=== PATIENT | male | born 1955 | race Caucasian/White ===

== ENCOUNTER 2021-02-06 08:51 | Outpatient (CLI) | payer BC, SELFPAY | END 2021-02-06 08:52 | disposition home or self-care (01) | PROVIDERS: PCP Nurse Practitioner Family; Visit Provider Nurse Practitioner Family | DX: H90.3 Sensorineural hearing loss, bilateral (principal) | CPT/HCPCS: 92557; 92567 ==

== ENCOUNTER 2021-02-13 09:28 | Outpatient (CLI) | payer BC, SELFPAY ==
--- NOTE | ~2021-02-13 | XR_ITS ---
EXAMINATION: XR abdomen/kub 1V EXAM DATE: 02/13/2021 09:44 INDICATION: Kidney stone. TECHNIQUE: Frontal projection of the upper abdomen, frontal projection lower abdomen/pelvis for inter pretation. There is no prior study for comparison. FINDINGS: There is somewhat amorphous calcific density projecting over expected location of left ure ter proximally, possible ureteral stone or stones. There is more dense calcification projecting over lower pole of left kidney, probable inferior calyceal stone. These findings have been indicated for c orrelation with patient's prior cross-sectional imaging. There is nonobstructive bowel gas pattern. L jasmin bases are clear. Mild bony degenerative changes. IMPRESSION: 1. Left nephrolithiasis. 2. Another calcific density could be left proximal ureteral stone or stones. Reviewed, dictated and finalized at location A.
--- NOTE | ~2021-02-13 | US_ITS ---
EXAMINATION: US renal BI DATE: 02/13/2021 10:28 INDICATION: Calculus of the kidney TECHNIQUE: Multiple grayscale and Doppler ultrasound images of the kidneys were obtained. COMPARISON: None. FINDINGS: The right kidney measures 10.4 x 5.5 x 5.6 cm. There is an 8 mm hyperechoic focus right kid kassi upper pole which may reflect a nonobstructing stone. There is 1.9 cm cyst with thin internal sept ation the upper pole of the right. The left kidney measures 11.4 x 7.0 x 6.3 cm. Cysts of the left ki dney measure up to 8.4 cm. Suspected nephrolithiasis on today's KUB is not well demonstrated. The kid neys demonstrate normal parenchymal echogenicity. There is no hydronephrosis. The bladder is normal. IMPRESSION: 1. Nonobstructing right kidney stone. Reviewed, dictated and finalized at location B.
== END 2021-02-13 09:29 | disposition home or self-care (01) ==
LOC: ANHIMG 09:33
PROVIDERS: PCP Nurse Practitioner Family; Visit Provider Urology
DX: N20.0 Calculus of kidney (principal)
CPT/HCPCS: 74018; 76775

== ENCOUNTER 2021-02-20 06:41 | Outpatient (CLI) | payer BC, SELFPAY ==
--- NOTE | ~2021-02-20 | MR_ITS ---
EXAMINATION: MR IAC wo/w con DATE: 02/20/2021 08:16 INDICATION: Asymmetrical neurosensory hearing loss. Tinnitus. TECHNIQUE: Magnetic resonance imaging (MRI) of the brain, brainstem, and internal auditory canals was performed without and with 15 mL MultiHance intravenous contrast. Sequences included sagittal and ax ial T1-weighted FSE, axial diffusion-weighted FS EPI, axial T2*-weighted GRE, axial T2-weighted FLAIR Propeller, axial T2-weighted Propeller, small vaadl-dn-ygwn coronal FIESTA, small wqhxs-hx-fahe manny nal T1-weighted FSE, and small iinep-jh-zxim axial T1-weighted SPGR. Postcontrast sequences included axial T1-weighted FSE, small hqrfv-jt-wkdw coronal T1-weighted FSE, and small odhfq-ad-pxau axial T1- weighted SPGR. Apparent diffusion coefficient (ADC) maps were created. COMPARISON: None. FINDINGS: There is no intracranial hemorrhage, acute infarction, or abnormal intracranial mass lesion . The ventricles are normal in size. There is a mucous retention cyst in left maxillary sinus. The in ternal auditory canals and inner and middle ears are normal. The mastoid air cells are normal. The or bits are normal. IMPRESSION: 1. Normal brain. Reviewed, dictated and finalized at location A. 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 Normal brain.
[2021-02-20 07:21] LABS: Estimated Glomerular Filt Rate > 60
== END 2021-02-20 06:42 | disposition home or self-care (01) ==
LOC: ANHIMG 06:47
PROVIDERS: PCP Nurse Practitioner Family; Visit Provider Nurse Practitioner Family
DX: H90.5 Unspecified sensorineural hearing loss (principal)
CPT/HCPCS: 70553; A9577

== ENCOUNTER 2021-05-03 13:30 | Outpatient (RCR) | payer BC, SELFPAY | END 2021-06-14 23:59 | disposition home or self-care (01) | LOC: ANHAUDASC 13:30 | PROVIDERS: PCP Nurse Practitioner Family; Visit Provider Nurse Practitioner Family | DX: Z46.1 Encounter for fitting and adjustment of hearing aid (principal) | CPT/HCPCS: 99199; V5160; V5261 ==

== ENCOUNTER 2021-09-17 10:17 | Emergency (ER) | payer MEDICARE, MEDICAID, SELFPAY ==
[2021-09-17 10:28] VITALS: BP 114/85; PULSE 80; RESP 12; TEMP 36; O2SAT 100
--- NOTE | 2021-09-17 10:58 | ED.GENADULT ---
HPI - General Adult General Chief complaint: Upper Respiratory Infection Stated complaint: sore throat Source: patient Mode of arrival: ambulatory Limitations: no limitations History of Present Illness HPI narrative: Patient presents for evaluation of sore throat for the last week. He states that symptoms are progressively worsening. He now reports pain in bilateral ears when he swallows. He has also developed a productive cough of clear sputum. No fever, chills, nausea, vomiting, diarrhea, body aches or SOB. He states several family members have similar symptoms. His was evaluated and told her symptoms were allergy-related. He has not been taking any medications to assist with his symptoms. He had COVID back in 2019. He has not received COVID vaccination. He states he had similar symptoms in the past with bronchitis. He states he previously had recurrent bronchitis when he smoked, which he no longer does. Related Data Home Medications Medication Instructions Recorded Confirmed montelukast 10 mg tablet tablet 09/17/21 omeprazole 40 mg capsule,delayed cap 09/17/21 release rosuvastatin 10 mg tablet tablet 09/17/21 sumatriptan succinate 4 mg/0.5 mL ea subcut 09/17/21 subcutaneous cartridge (refill) verapamil 80 mg tablet tablet 09/17/21 Allergies Allergy/AdvReac Type Severity Reaction Status Date / Time No Known Allergies Allergy Verified 09/17/21 10:29 Review of Systems Review of Systems: CONSTITUTIONAL: Denies fever, chills, or sweats. EYES: Denies visual changes, redness, or discharge. ENT: Reports bilateral ear pain and sore throat. Denies rhinorrhea, congestion CARDIOVASCULAR: Denies chest pain, palpitations, or edema. RESPIRATORY:Reports cough. Denies dyspnea. GASTROINTESTINAL: Denies abdominal pain, nausea, vomiting, or diarrhea. GENITOURINARY: Denies dysuria or hematuria. SKIN: Denies rash or itching. MUSCULOSKELETAL: Denies back pain, joint pain, or myalgia. NEUROLOGIC: Denies headache, numbness, dizziness, or weakness. PSYCHIATRIC: Denies anxiety or depression. [facility] Past Medical History Medical History (Updated 09/17/21 @ 11:19 by Karan Hilliard, CED, BRANDON) No pertinent past medical history Surgical History Surgical History No pertinent past surgical history Family History Family History Mother Family history non-contributory Social History Social History Smoking status: Former smoker Substance use: never Living arrangements: with family Gender identity (if verbalized by the patient): Male Sexual Orientation (if Verbalized by the Patient): Straight or Heterosexual Spiritual care concerns: No Exam Narrative: GENERAL: Well-appearing, well-nourished, and in no acute distress. HEAD: Normocephalic, atraumatic. EYES: PERRLA and EOMI. ENT: Nares clear, no rhinorrhea or epistaxis. Mucous membranes moist. Posterior pharyngeal erythema without exudate. Uvula midline. Bilateral TMs pearly andersen nonbulging NECK: Supple. No adenopathy or masses. No carotid bruits or JVD CHEST: Clear to auscultation. No respiratory distress. No wheezes rales or rhonchi HEART: Regular rate and rhythm. No murmur heard. Normal peripheral pulses. ABDOMEN: Soft, nontender, nondistended, normal active bowel sounds. EXTREMITIES: Normal range of motion. No edema. SKIN: Warm, dry, no rash. NEURO: No focal deficits. Alert and oriented x3. PSYCH: Normal mood and affect. Course Course Emergency Course: This is a 66-year-old male who presented with complaints of sore throat x1 week. Strep was negative, but he had improvement in the past with amoxicillin. Will dc with amoxicillin. Advised follow up outpatient for further evaluation and treatment and return for worsening symptoms. Pt in agreement with plan of
== END 2021-09-17 11:22 | disposition home or self-care (01) ==
PROVIDERS: Emergency Provider Nurse Practitioner; PCP Family Medicine
DX: J02.9 Acute pharyngitis, unspecified (principal); Z28.310 Unvaccinated for COVID-19
CPT/HCPCS: 87081; 87880; 99213; G0463

== ENCOUNTER 2021-10-23 10:01 | Outpatient (RCR) | payer MEDICARE, MEDICAID, SELFPAY | END 2022-01-21 23:59 | disposition home or self-care (01) | LOC: ANHAUDASC 10:01 | PROVIDERS: PCP Family Medicine; Visit Provider Family Medicine | DX: Z46.1 Encounter for fitting and adjustment of hearing aid (principal) | CPT/HCPCS: 99199 ==

== ENCOUNTER 2022-01-01 10:20 | Outpatient (CLI) | payer MEDICARE, MEDICAID, SELFPAY ==
--- NOTE | 2022-01-02 11:03 | WPDNEUROLOGY ---
Neurology EEG Report General Information Date of Study: 01/01/22 TEST EEG DIAGNOSIS amnesia CONDITION OF RECORDING drowsy and sleep EEG NUMBER [id number] CLINICAL HISTORY patient states that his tells him he is having trouble remembering things. He does notice it some but not as much as his . EEG DESCRIPTION Basic resting occipital frequency consists of low voltage 9 to 11 hertz per 2nd alpha during brief periods of wakefulness. Low-voltage beta activity seen diffusely during drowsiness. Bilateral symmetrical sleep activity seen during sleep. Hyperventilation not done. Photic stimulation produced poor drive. Non paroxysmal. Nonfocal. Non lateralizing. IMPRESSION No significant abnormalities noted
== END 2022-01-01 10:21 | disposition home or self-care (01) ==
LOC: ANHNEURO 10:23
PROVIDERS: PCP Family Medicine; Visit Provider Psychiatry & Neurology Neurology
DX: R41.3 Other amnesia (principal)
CPT/HCPCS: 95816

== ENCOUNTER 2022-01-05 08:00 | Outpatient (CLI) | payer MEDICARE, MEDICAID, SELFPAY ==
--- NOTE | ~2022-01-05 | US_ITS ---
EXAMINATION: US carotid duplex BI DATE: 01/05/2022 08:39 INDICATION: Transient cerebral ischemic attack TECHNIQUE: Grayscale, color Doppler, and pulsed Doppler images of the cervical carotid arteries were obtained. The degree of vessel stenosis is placed in one of the following categories: normal, <50%, 5 0-69%, >=70% but less than near-occlusion, near-occlusion, or total occlusion. Note that percent sten osis relative to normal distal artery lumen diameter is indirectly measured from velocity measurement s as described by Chele, et al. Radiology 2003; 229:340-346. Notes: Normal: Peak systolic velocity <125 centimeters/sec and no plaque <50%. Peak systolic velocity <125 ( EDV <40; ICA/CCA PSV ratio <2.0; used these factors only a tandem lesions or low cardiac output or co ntralateral disease) 50-69 %: PSV 125-230 (EDV 40-100; ratio 2-4) >= 70% but less than near occlusion: PSV greater than 230 (EDV > 100; ratio> 4.0) Near Occlusion: PSV that is variable; markedly narrowed lumen Occlusion: Absent flow on color/spectral Doppler and no lumen on andersen scale. COMPARISON: None. FINDINGS: RIGHT: The right common carotid artery (CCA) peak systolic velocity (PSV) is 91 cm/s. The right internal car otid artery (ICA) PSV is 73 cm/s. The right ICA end-diastolic velocity (EDV) is 23 cm/s. The right IC A/CCA PSV ratio is 0.8. The external carotid artery (ECA) PSV is 65 cm/s. There is antegrade flow in the right vertebral artery. LEFT: The left CCA PSV is 75 cm/s. The left ICA PSV is 68 cm/s. The left ICA EDV is 33 cm/s. The left ICA/C CA PSV ratio is 0.9. The ECA PSV is 51 cm/s. There is antegrade flow in the left vertebral artery. IMPRESSION: 1. Less than 50% stenosis in the right internal carotid artery by sonographic criteria. 2. Less than 50% stenosis in the left internal carotid artery by sonographic criteria. Reviewed, dictated and finalized at location A. IMPRESSION: 1. Less than 50% stenosis in the right internal carotid artery by sonographic amalia maher. 2. Less than 50% stenosis in the left internal carotid artery by sonographic aleksandr harris.
== END 2022-01-05 08:01 | disposition home or self-care (01) ==
PROVIDERS: PCP Family Medicine; Visit Provider Psychiatry & Neurology Neurology
DX: G45.9 Transient cerebral ischemic attack, unspecified (principal); I65.23 Occlusion and stenosis of bilateral carotid arteries
CPT/HCPCS: 93880

== ENCOUNTER 2022-10-19 13:26 | Outpatient (CLI) | payer MEDICARE, MEDICAID, SELFPAY | END 2022-10-19 13:27 | disposition home or self-care (01) | LOC: ANHAUDASC 13:27 | PROVIDERS: PCP Family Medicine; Visit Provider Family Medicine | DX: H90.3 Sensorineural hearing loss, bilateral (principal) | CPT/HCPCS: 92557; 92567 ==

== ENCOUNTER 2023-07-15 10:21 | Emergency (ER) | payer MEDICARE, SELFPAY ==
[2023-07-15 10:35] VITALS: BP 111/80; PULSE 72; RESP 18; TEMP 36.8; O2SAT 97
--- NOTE | 2023-07-15 10:42 | ED.URI ---
HPI - URI/Sore Throat General Chief Complaint: Upper Respiratory Infection Stated Complaint: Upper Respiratory Symptoms Time Seen by Provider: 07/15/23 10:42 Source: patient, RN notes reviewed and old records reviewed Mode of arrival: ambulatory Limitations: no limitations History of Present Illness HPI Narrative: 68-year-old male presents to the [facility] with complaints of upper respiratory symptoms that started about 1 week ago. Patient reports cough and shortness of breath. Patient does have a history of smoking, quit about 6 years ago. Patient denies any fevers. Patient denies any chest pain. Has taken Mucinex with no relief Treatments prior to arrival: cold medicine Related Data Home Medications Medication Instructions Recorded Confirmed montelukast 10 mg tablet 1 tablet PO DAILY 09/17/21 07/15/23 omeprazole 40 mg capsule,delayed 1 cap PO DAILY 09/17/21 07/15/23 release rosuvastatin 10 mg tablet 1 tablet PO DAILY 09/17/21 07/15/23 sumatriptan succinate 4 mg/0.5 mL 1 ea subcut PRN PRN Headache 09/17/21 07/15/23 subcutaneous cartridge (refill) verapamil 80 mg tablet 1 tablet PO DAILY 09/17/21 07/15/23 Allergies Allergy/AdvReac Type Severity Reaction Status Date / Time No Known Allergies Allergy Verified 07/15/23 11:37 Review of Systems Review of Systems: All systems reviewed & are unremarkable except as noted in HPI and below Constitutional: Constitutional: Reports no additional constitutional complaints Eyes: Eyes: Reports no additional eye complaints ENT: Reports system reviewed and no additional complaints, except as documented Cardiovascular: Cardiovascular: Reports no additional cardiovascular complaints, Denies chest pain and Denies dyspnea Respiratory: Respiratory: Reports as per HPI, Denies chest congestion, Reports cough and Reports dyspnea (Intermittent) Gastrointestinal: Gastrointestinal: Reports no additional gastrointestinal complaints, Denies abdominal pain, Denies nausea and Denies vomiting Musculoskeletal: Musculoskeletal: Reports no additional musculoskeletal complaints Integumentary/Breasts: Skin/Breast: Reports system reviewed and no additional complaints, except as docu Neurologic: Reports system reviewed and no additional complaints, except as documented Psychiatric: Psychiatric: Reports no additional psychiatric complaints Allergic/Immunologic: Allergic/Immunologic: Reports no additional allergic/immunologic complaints PMFSH Past Medical History Medical History No pertinent past medical history Surgical History Surgical History No pertinent past surgical history Family History Family History Mother Family history non-contributory Social History Social History Smoking status: Former smoker Substance use: never Living arrangements: with family Gender identity (if verbalized by the patient): Male Sexual Orientation (if Verbalized by the Patient): Straight or Heterosexual Spiritual care concerns: No Comments At the time of my signature, I reviewed and agree with the nursing past medical, surgical, social, and family history. There is no relevant family history pertinent to the patient complaint. Exam Const: General: cooperative, healthy appearing, comfortable, no acute distress, well developed, alert and well nourished Nutritional Appearance: well nourished Orientation/consciousness: patient oriented x3 Limitations: no limitations HENMT: Head: normal to inspection Ears: hearing grossly normal bilaterally, external ears normal, TM's normal bilaterally, EAC's normal, mastoids normal, no periauricular adenopathy and other (Wears hearing aids) Face/Nose/Sinus: Normal external nose present, Normal nares present, Normal nasal mucous memb
== END 2023-07-15 11:32 | disposition home or self-care (01) ==
PROVIDERS: Emergency Provider Nurse Practitioner
DX: J40 Bronchitis, not specified as acute or chronic (principal); Z87.891 Personal history of nicotine dependence
CPT/HCPCS: 99213; G0463

== ENCOUNTER 2023-09-16 09:35 | Outpatient (CLI) | payer MEDICARE, SELFPAY ==
[2023-09-16 12:51] LABS: Hematocrit 44.7 % (42.0-52.0); Hemoglobin 14.4 g/dL (14.0-18.0); Mean Corpuscular HGB Conc 32.2 g/dl (32-36); Mean Corpuscular Hemoglobin 30.7 pg (26-34); Mean Corpuscular Volume 95.3 fl (80-100); Mean Platelet Volume 11.5 fl (7.4-10.4); Platelet Count Result 173 k/mm3 (150-375); Red Blood Count 4.69 M/mm3 (4.6-6.20); Red Cell Distribution Width 13.8 % (11.5-14.5); White Blood Count 4.8 K/mm3 (4.5-10.0)
[2023-09-16 13:23] LABS: Alanine Aminotransferase 53 U/L (6-50); Albumin Level 4.6 g/dL (3.5-5.1); Alkaline Phosphatase 45 U/L (38-126); Anion Gap 7 mmol/L (4-12); Aspartate Amino Transferase 37 U/L (17-59); Bilirubin,Total 0.8 mg/dL (0.2-1.3); Blood Urea Nitrogen 21 mg/dL (9-20); Calcium 9.7 mg/dL (8.4-10.2); Carbon Dioxide 28 mmol/L (22-30); Chloride 104 mmol/L (98-107); Cholesterol 159 mg/dL (0-200); Estimated Glomerular Filt Rate 60; Glucose 95 mg/dL (65-110); HDL Direct 47 mg/dL; Sodium 139 mmol/L (137-145); Triglycerides 87 mg/dL (<150)
[2023-09-16 13:34] LABS: LDL Cholesterol Direct 88 mg/dL
[2023-09-16 17:27] LABS: Hemoglobin A1C 5.5 % (<5.7)
[2023-09-19 11:38] LABS: Vitamin D 1,25 (OH)2 Total 57 pg/mL (18-72); Vitamin D2 1,25 (OH)2 <8 pg/mL; Vitamin D3 1,25 (OH)2 57 pg/mL
== END 2023-09-16 09:36 | disposition home or self-care (01) ==
LOC: ANHGOSHLAB 09:36
PROVIDERS: PCP Family Medicine; Visit Provider Family Medicine
DX: E55.9 Vitamin D deficiency, unspecified (principal); E78.5 Hyperlipidemia, unspecified; I10 Essential (primary) hypertension; R73.03 Prediabetes; Z79.899 Other long term (current) drug therapy; Z12.11 Encounter for screening for malignant neoplasm of colon
CPT/HCPCS: 36415; 80053; 80061; 82652; 83036; 84443; 85027

== ENCOUNTER 2023-10-25 09:12 | Outpatient (CLI) | payer MEDICARE, SELFPAY ==
--- NOTE | ~2023-10-25 | MR_ITS ---
MRI of the brain Clinical History: Short-term memory issues Technique: Axial and sagittal T1-weighted images were acquired. These were followed by axial T2-weigh jim, diffusion weighted, gradient, and FLAIR images. Findings: No abnormal signal seen in the brain parenchyma. No acute infarct, intracranial hemorrhage, mass lesion. Ventricles and subarachnoid spaces are unremarkable. Orbits are unremarkable. Paranasal sinuses and m astoid air cells are clear. Major intracranial flow voids are intact. Sagittal midline structures are intact. IMPRESSION: Normal exam. Reviewed, dictated and finalized at location M. IMPRESSION: Normal exam.
== END 2023-10-25 09:13 ==
LOC: GOSHIMG 09:13
PROVIDERS: PCP Family Medicine; Visit Provider Student in an Organized Health Care Education/Training Program
DX: R41.3 Other amnesia (principal)
CPT/HCPCS: 70551

== ENCOUNTER 2023-12-10 09:37 | Outpatient (CLI) | payer MEDICARE, SELFPAY ==
[2023-12-11 20:24] LABS: Red Blood Cell Folate 470 ng/mL RBC (>280)
[2023-12-12 12:23] LABS: Homocysteine 8.2 umol/L (<11.4)
[2023-12-17 10:38] LABS: Methylmalonic Acid 175 nmol/L (69-390)
[2023-12-18 07:59] LABS: Reference Lab Test Name PTAU181 Plasma
[2023-12-18 08:02] LABS: Reference Lab Test Result 0.81
[2023-12-20 08:43] LABS: Reference Lab Test Name NfL Plasma
[2023-12-20 08:45] LABS: Reference Lab Test Result 2.21
[2023-12-23 08:08] LABS: Reference Lab Test Name APOE Isoform
[2023-12-23 08:11] LABS: Reference Lab Test Result E3/E4
[2023-12-23 08:23] LABS: Reference Lab Test Name Beta Amy 42/40
== END 2023-12-10 09:38 | disposition home or self-care (01) ==
LOC: ANHGOSHLAB 09:39
PROVIDERS: PCP Family Medicine; Visit Provider Psychiatry & Neurology Neurology
DX: R41.3 Other amnesia (principal); Z79.899 Other long term (current) drug therapy
CPT/HCPCS: 36415; 82607; 82747; 83090; 83921; 84443

== ENCOUNTER 2024-01-07 11:54 | Outpatient (CLI) | payer MEDICARE, SELFPAY ==
[2024-01-07 14:00] LABS: Prostate Specific Antigen < 0.1 ng/mL (< OR = 4.0)
== END 2024-01-07 11:55 | disposition home or self-care (01) ==
PROVIDERS: PCP Family Medicine; Visit Provider Nurse Practitioner
DX: Z12.5 Encounter for screening for malignant neoplasm of prostate (principal)
CPT/HCPCS: 36415; 84153; G0103

== ENCOUNTER 2024-01-23 07:11 | Outpatient (CLI) | payer MEDICARE, SELFPAY ==
[2024-01-23 07:51] LABS: Alanine Aminotransferase 39 U/L (6-50); Albumin Level 4.6 g/dL (3.5-5.1); Alkaline Phosphatase 43 U/L (38-126); Anion Gap 6 mmol/L (4-12); Aspartate Amino Transferase 29 U/L (17-59); Bilirubin,Total 0.8 mg/dL (0.2-1.3); Blood Urea Nitrogen 19 mg/dL (9-20); Calcium 9.4 mg/dL (8.4-10.2); Carbon Dioxide 29 mmol/L (22-30); Chloride 101 mmol/L (98-107); Cholesterol 196 mg/dL (0-200); Estimated Glomerular Filt Rate > 60; Glucose 102 mg/dL (65-110); HDL Direct 62 mg/dL; Potassium 3.9 mmol/L (3.4-5.0); Sodium 136 mmol/L (137-145); Triglycerides 103 mg/dL (<150)
[2024-01-23 08:02] LABS: LDL Cholesterol Direct 99 mg/dL
[2024-01-23 09:16] LABS: Hemoglobin A1C 5.7 % (<5.7)
== END 2024-01-23 07:12 | disposition home or self-care (01) ==
PROVIDERS: PCP Family Medicine; Visit Provider Nurse Practitioner
DX: E78.5 Hyperlipidemia, unspecified (principal); R73.03 Prediabetes
CPT/HCPCS: 36415; 80053; 80061; 83036

== ENCOUNTER 2024-07-22 07:44 | Outpatient (CLI) | payer MEDICARE, SELFPAY ==
--- OUTSIDE RECORDS SUMMARY | 2024-07-22 07:49 | XMS_ITS | Clinical Summary ---
Author Organization [facility] Address [address] [place] [address] Care Team Providers Care Deputy City Clerk Name Role Phone Provider, No Pcp Primary Care Provider Unavailab le Source Comments [facility],non-owned Affiliates and Associated Physician Practices is amultiple site organization consisting of ambulatory clinics and hospital sitesin [place], [place], [place] and [place]. This disclosure is being madepursuant to the Care Everywhere program and may not contain all information available regarding this patient. Last updated 18.[facility] Health Encounters Date Type Department Care Team Description 05/04/2024 Travel from Last 3 Months Social History Tobacco Use Types Packs/Day Years Used Date Smoking Tobacco: Never Assessed Sex and Gender Information Value Date Recorded Sex Assigned at Not on file Gender Identity Male 08/20/2023 9:50 AM CDT Sexual Orientation Not on file Plan of Treatment Health Maintenance Due Date Last Done Comments COLOGUARD (AGES 45-75) - COL ON CA SCREENING 1956 COLON MONITORING 1956 COLONOSCOPY - COLON CA SCREENING 1956 CT COLONOGRAPHY - COLON CA SCREENING 1956 Colorectal Cancer Screening 1956 FIT - COLON CA SCREENING 1956 FLEX SIG - COLON CA SCREENING 1956 LIPID TESTING 1956 HEPATITIS C SCREENING 06/24/1974 DTAP/TDAP/TD VACCINES (1 - Tdap) 06/29/1975 PNEUMOCOCCAL VACCINE 50+ (1 of 1 - PCV) 2006 ZOSTER VACCINE (1 of 2) 2006 COVID-19 VACCINE (2023-2 5 season) 2023 INFLUENZA VACCINE (#1) 2023 DEPRESSION SCREENING 04/15/2024 Respiratory Syncytial Virus (RSV) Vaccine Pt: or over 60 yrs (1 - 1-dose 75+ series) 06/29/2031 HEPATITIS B VACCINE Aged Out No longe r eligible based on patient's age to complete this topic HIB VACCINE Aged Out No longer eligi ble based on patient's age to complete this topic HPV VACCINE Aged Out No longer eligi ble based on patient's age to complete this topic MENINGOCOCCAL (Group B) VACC INE SHARED DECISION-MAKING Aged Out No longer eligibl e based on patient's age to complete this topic MENINGOCOCCAL GROUPS A/C/Y/W VACCINE Aged Out No longer eligible b ased on patient's age to complete this topic Medical Devices Implanted Type Area Vacuum Tank Tender Device Identifier Shelf Expiration Date Model / Serial / Lot Stent Implanted:Qty: 1 on 10/19/2009 Left: [employer] 08/13/2012 [id number] / / [id number] Advance Directives Documents on File Type Date Recorded 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
--- OUTSIDE RECORDS SUMMARY | 2024-07-22 07:49 | XMS_ITS | Clinical Summary ---
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 Gender Identity Not on file Sexual Orientation Not on file Plan of Treatment Upcoming Encounters Date Type Department Care Team (Late st Contact Info) Description 11/19/2024 11:00 AM CDT Office Visit [facility] - [address] [place] [phone] Jerad Padilla MD [address] [place] [id number] Health Maintenance Due Date Last Done Comments Colorectal Cancer Screening Colonoscopy (10 Years) 1956 Hepatitis C 1974 DTaP, Tdap and Td Vaccines ( 1 - Tdap) 06/29/1975 Zoster Vaccines (1 of 2) 2006 Annual Medicare Wellness Visit 2021 Pneumococcal Vaccine: 65+ Ye ars (1 of 1 - PCV) 2021 COVID-19 Vaccine ( - 2023-2 5 season) 2023 RSV Immunization or 60+ Years (1 - 1-dose 75+ series) 06/29/2031 Meningococcal B Vaccine Aged Out No l onger eligible based on patient's age to complete this topic Meningococcal Vaccine Aged Out No nader wanda eligible based on patient's age to complete this topic RSV Immunizations Under 20 Months Aged Out No longer eligible based on patient's age to complete this topic Insurance HUMAN Care Teams Touch Up Painter Relationship Specialty Start Date End Date Marleni Ibrahim NP [address] [place] [address] PCP - General [facility] SPORTS MEDICINE 05/26/24
[2024-07-22 08:21] LABS: Hematocrit 41.8 % (42.0-52.0); Hemoglobin 13.4 g/dL (14.0-18.0); Mean Corpuscular HGB Conc 32.1 g/dl (32-36); Mean Corpuscular Hemoglobin 30.5 pg (26-34); Mean Platelet Volume 10.7 fl (7.4-10.4); Platelet Count Result 171 k/mm3 (150-375); Red Cell Distribution Width 13.3 % (11.5-14.5); White Blood Count 4.8 K/mm3 (4.5-10.0)
[2024-07-22 08:34] LABS: Alanine Aminotransferase 55 U/L (6-50); Albumin Level 4.3 g/dL (3.5-5.1); Alkaline Phosphatase 54 U/L (38-126); Anion Gap 8 mmol/L (4-12); Aspartate Amino Transferase 43 U/L (17-59); Bilirubin,Total 0.4 mg/dL (0.2-1.3); Blood Urea Nitrogen 17 mg/dL (9-20); Carbon Dioxide 27 mmol/L (22-30); Chloride 105 mmol/L (98-107); Cholesterol 150 mg/dL (0-200); Estimated Glomerular Filt Rate > 60; Glucose 104 mg/dL (65-110); HDL Direct 49 mg/dL; Potassium 4.1 mmol/L (3.4-5.0); Sodium 140 mmol/L (137-145); Triglycerides 47 mg/dL (<150)
[2024-07-22 08:45] LABS: LDL Cholesterol Direct 85 mg/dL
[2024-07-22 09:02] LABS: Prostate Specific Antigen < 0.1 ng/mL (< OR = 4.0)
[2024-07-22 09:33] LABS: Vitamin D 25 Hydroxy 62.5 ng/mL
[2024-07-22 10:25] LABS: Hemoglobin A1C 5.8 % (<5.7)
== END 2024-07-22 07:45 | disposition home or self-care (01) ==
PROVIDERS: PCP Family Medicine; Visit Provider Nurse Practitioner
DX: E55.9 Vitamin D deficiency, unspecified (principal); Z79.899 Other long term (current) drug therapy; Z12.5 Encounter for screening for malignant neoplasm of prostate
CPT/HCPCS: 36415; 80053; 80061; 82306; 83036; 84153; 84443; 85027; G0103

== ENCOUNTER 2025-01-21 00:16 | Day surgery (SDC) | payer MEDICARE, SELFPAY ==
[2025-01-07 14:32] VITALS: BMI 22.5
[2025-01-21 08:07] VITALS: BP 124/74; PULSE 86; RESP 20; TEMP 36.6; O2SAT 100
[2025-01-21] MEDS: LACTATED RINGERS 1,000 ML 150 ML IV CONT (08:23)
--- NOTE | 2025-01-21 08:45 | P.PNAN_ITS ---
Anes - Initial Pre Proc Eval Procedure: Operation Date: 01/21/25 09:30 Proposed Procedures p Screening Colonoscopy - Benito Banegas MD Date/Time: 01/21/25 08:45 Surgeon: Benito Banegas MD Pre Op Diagnosis: Screening Patient Data Age: 69 Gender: M Height: 1.85 m Weight: 76.3 kg Last Vital Signs Temp 97.8 F 01/21/25 08:07 Pulse 86 01/21/25 08:07 Resp 20 01/21/25 08:07 BP 124/74 01/21/25 08:07 Pulse Ox 100 01/21/25 08:07 O2 Del Method Room Air 01/21/25 08:07 Allergies Allergy/AdvReac Type Severity Reaction Status Date / Time No Known Allergies Allergy Verified 01/21/25 08:06 Home Medications ?Medication ?Instructions ?Recorded ?Confirmed ?Type montelukast 10 mg tablet 10 mg PO DAILY PRN allergy s ymptoms 07/23/23 01/07/25 History sumatriptan succinate 100 mg tablet See Rx Instruction s PO .COMPLEX 08/19/23 01/07/25 History PRN migraine headache omeprazole 40 mg capsule,delayed See Rx Instructions . Route 09/15/24 01/21/25 Rx release .COMPLEX #90 caps cholecalciferol (vitamin D3) 50 50 mcg PO DAILY 01/21/25 History mcg (2,000 unit) capsule olopatadine 0.7 % eye drops 1 drp EACH EYE DAILY PRN i tching 10/13/24 01/07/25 Rx (Pataday Once Daily Relief) #5 mL rosuvastatin 10 mg tablet See Rx Instructions .Route 0 11/25/24 01/21/25 Rx .COMPLEX #90 tabs verapamil 80 mg tablet See Rx Instructions .Route 0 11/25/24 01/21/25 Rx .COMPLEX #270 tabs Patient hx anesthesia problems: none Family hx anesthesia problems: none Results Review: All pre-operative results and documents have been reviewed as part of the pre- operative evaluation. [facility] Past Medical History Medical History Deviated septum No pertinent past medical history Surgical History Surgical History H/O prostatectomy Previous back surgery H/O hand surgery No pertinent past surgical history Family History Family History Mother Cancer Father Malignant neoplasm of prostate Hypertension Sibling Diabetes mellitus Alcoholism Social History Social History Social History: Caffeine-coffee Smoking packs per day: 2 Smoking cigarettes per day: 40.0 Years smoked: 20 Smoking pack-years: 40.00 Smoking status: Former smoker Tobacco type: cigarettes Smoking end date: 04/15/16 Alcohol intake: current Drinks per week: 14 Alcohol use details: beer Substance use: never Substance use type: does not use Other substance usage details: gummies Do You Feel Safe in your Home?: Yes Lack of Transportation: No Lack of Food: Never True Current Housing: I Have Housing Concerned About Future Housing: No Difficulty Paying Gas/Electric Bills: YES Difficulty Paying for Meds: No Currently Unemployed: YES Education: Associate Degree Difficulty w/ Childcare or Family Care: No Living arrangements: with family Additional living arrangements comments: with sp Gender identity (if verbalized by the patient): Male Sexual Orientation (if Verbalized by the Patient): Straight or Heterosexual Spiritual care concerns: No Anes - Eval Final PreProcedure Day of Procedure 01/21/25 08:45 Patient weight: normal Lungs: normal air movement Airway: Mallampati scale class II Neurological: alert and oriented Last oral intake: >/= 8 hours ASA classification: III Emergent: no Anesthetic plan: proceed Anesthesia type and monitoring: general GIVS and standard monitoring Results Review: All pre-operative results and documents have been reviewed as part of the pre- operative evaluation. Hyperlipidemia, CCB for cluster cosme, mild alzheimers Informed Consent: The patient's anesthetic plan and its attendant risks and benefits were discussed with the patient/family/POA. Questions were solicited and answers provided to the satisfaction of the patient/family/POA.
--- NOTE | 2025-01-21 09:13 | PM.HPGS ---
History of Present Illness History of Present Illness Consent: Risks, benefits, and alternatives have been discussed and questions answered. Patient agrees to proceed with procedure. Chief complaint: Screening Narrative: Zoran Mota is a 69 year old male here for screening colonoscopy, last one when he was 51 yo Review of Systems Review of Systems: All systems reviewed & are unremarkable except as noted in HPI and below PMFSH Past Medical History Medical History Deviated septum No pertinent past medical history Surgical History Surgical History H/O prostatectomy Previous back surgery H/O hand surgery No pertinent past surgical history Family History Family History Mother Cancer Father Malignant neoplasm of prostate Hypertension Sibling Diabetes mellitus Alcoholism Social History Social History Social History: Caffeine-coffee Smoking packs per day: 2 Smoking cigarettes per day: 40.0 Years smoked: 20 Smoking pack-years: 40.00 Smoking status: Former smoker Tobacco type: cigarettes Smoking end date: 04/15/16 Alcohol intake: current Drinks per week: 14 Alcohol use details: beer Substance use: never Substance use type: does not use Other substance usage details: gummies Do You Feel Safe in your Home?: Yes Lack of Transportation: No Lack of Food: Never True Current Housing: I Have Housing Concerned About Future Housing: No Difficulty Paying Gas/Electric Bills: YES Difficulty Paying for Meds: No Currently Unemployed: YES Education: Associate Degree Difficulty w/ Childcare or Family Care: No Living arrangements: with family Additional living arrangements comments: with sp Gender identity (if verbalized by the patient): Male Sexual Orientation (if Verbalized by the Patient): Straight or Heterosexual Spiritual care concerns: No Meds Home Medications and Allergies Home Medications ?Medication ?Instructions ?Recorded ?Confirmed ?Type montelukast 10 mg tablet 10 mg PO DAILY PRN allergy symptoms 07/23/23 01/07/25 History sumatriptan succinate 100 mg tablet See Rx Instructions PO .COMPLEX 08/19/23 01/07/25 History PRN migraine headache omeprazole 40 mg capsule,delayed See Rx Instructions .Route 09/15/24 01/21/25 Rx release .COMPLEX #90 caps cholecalciferol (vitamin D3) 50 50 mcg PO DAILY 10/13/24 01/21/25 History mcg (2,000 unit) capsule olopatadine 0.7 % eye drops 1 drp EACH EYE DAILY PRN itching 10/13/24 01/07/25 Rx (Pataday Once Daily Relief) #5 mL rosuvastatin 10 mg tablet See Rx Instructions .Route 11/25/24 01/21/25 Rx .COMPLEX #90 tabs verapamil 80 mg tablet See Rx Instructions .Route 11/25/24 01/21/25 Rx .COMPLEX #270 tabs Allergies Allergy/AdvReac Type Severity Reaction Status Date / Time No Known Allergies Allergy Verified 01/21/25 08:06 Vital Signs Vital Signs - 24 hr 01/21/25 08:07 Temperature 97.8 F Pulse Rate 86 Respiratory Rate 20 Blood Pressure 124/74 Pulse Oximetry 100 Oxygen Delivery Room Air Exam Const: General: comfortable and no acute distress HENMT: Face/Nose/Sinus: Normal nares present Eyes: General: appearance normal, both eyes and all related structures Neck: Neck: no JVD Resp: Auscultation: clear to auscultation bilaterally Cardio: Rate: regular rate Rhythm: regular rhythm GI: Inspection: non-distended GI Palp: Yes Soft to palpation Skin: General skin exam: normal color Extrem: General: normal to inspection Psych: Mental Status: mental status grossly normal Assessment and Plan Assessment and plan (1) Screening for colon cancer: Code(s): Z12.11 - Encounter for screening for malignant neoplasm of colon Status: Acute Assessment and Plan: colonoscopy
[2025-01-21 09:33] VITALS: BP 99/64; PULSE 73; RESP 18; O2SAT 100
[2025-01-21 09:43] VITALS: BP 103/63; PULSE 66; RESP 20; O2SAT 100
[2025-01-21 09:53] VITALS: BP 103/63; PULSE 70; RESP 17; O2SAT 100
== END 2025-01-21 09:58 | disposition home or self-care (01) ==
PROVIDERS: PCP Family Medicine; Referring Provider Family Medicine; Visit Provider Internal Medicine Gastroenterology
PROC: 0DJD8ZZ Inspection of Lower Intestinal Tract, Via Natural or Artificial Opening Endoscopic (ICD-10-PCS; CPT 45378; principal; 2025-01-21 09:30)
DX: Z12.11 Encounter for screening for malignant neoplasm of colon (principal); K64.8 Other hemorrhoids; K57.30 Diverticulosis of large intestine without perforation or abscess without bleeding; E78.5 Hyperlipidemia, unspecified; G30.9 Alzheimer's disease, unspecified; F12.90 Cannabis use, unspecified, uncomplicated; Z98.890 Other specified postprocedural states; Z98.1 Arthrodesis status; Z87.891 Personal history of nicotine dependence; Z80.42 Family history of malignant neoplasm of prostate
CPT/HCPCS: G0105; J2003; J2704; J7120

== ENCOUNTER 2025-01-22 14:24 | Outpatient (CLI) | payer MEDICARE, SELFPAY ==
[2025-01-22 15:13] LABS: Hematocrit 40.1 % (42.0-52.0); Hemoglobin 13.3 g/dL (14.0-18.0); Mean Corpuscular HGB Conc 33.2 g/dl (32-36); Mean Corpuscular Hemoglobin 30.6 pg (26-34); Mean Corpuscular Volume 92.2 fl (80-100); Platelet Count Result 183 k/mm3 (150-375); Red Blood Count 4.35 M/mm3 (4.6-6.20); White Blood Count 5.9 K/mm3 (4.5-10.0)
[2025-01-22 15:34] LABS: Alanine Aminotransferase 26 U/L (6-50); Albumin Level 4.3 g/dL (3.5-5.1); Alkaline Phosphatase 55 U/L (38-126); Anion Gap 6 mmol/L (4-12); Aspartate Amino Transferase 24 U/L (17-59); Bilirubin,Total 0.4 mg/dL (0.2-1.3); Blood Urea Nitrogen 23 mg/dL (9-20); Calcium 9.6 mg/dL (8.4-10.2); Carbon Dioxide 27 mmol/L (22-30); Chloride 101 mmol/L (98-107); Cholesterol 161 mg/dL (0-200); Estimated Glomerular Filt Rate > 60; Glucose 108 mg/dL (65-110); HDL Direct 45 mg/dL; Potassium 4.1 mmol/L (3.4-5.0); Sodium 134 mmol/L (137-145); Total Protein 6.9 g/dL (6.3-8.2); Triglycerides 205 mg/dL (<150)
[2025-01-22 15:38] LABS: Hemoglobin A1C 5.5 % (<5.7)
[2025-01-23 07:09] LABS: PSA, Free <0.02 ng/mL
== END 2025-01-22 14:25 | disposition home or self-care (01) ==
LOC: ANHLAB 14:28
PROVIDERS: PCP Family Medicine; Referring Provider Family Medicine; Visit Provider Nurse Practitioner
DX: E78.5 Hyperlipidemia, unspecified (principal); R73.03 Prediabetes; E55.9 Vitamin D deficiency, unspecified; I10 Essential (primary) hypertension; C61 Malignant neoplasm of prostate
CPT/HCPCS: 36415; 80053; 80061; 82306; 83036; 84153; 84154; 85027